=== PATIENT | male | born 1970 | race Two or more races ===

== ENCOUNTER 2017-12-01 12:05 | Inpatient (IN) | payer BC ==
[~2017-12-01] VITALS: Ht 165.1 cm; Wt 68.9 kg
[2017-12-01 16:00] VITALS: BP 139/72
[2017-12-01] MEDS ORDERED: Norco 5mg/325mg tab ORAL PRN ×2 (16:00→22:00)
[2017-12-01] MEDS ORDERED: Zolpidem 5mg tab ORAL PRN (17:00)
--- NOTE | 2017-12-01 17:05 | History & Physical ---
History and Physical History & Physicial Dictated for Int Med-Dr Carter no. [id number]. Arden Salas MD December 01, 2017 17:05
--- NOTE | 2017-12-01 17:45 | History and Physical Report ---
DATE OF ADMISSION: 12/01/2017 CHIEF COMPLAINT: The patient is a 47-year-old male who presents with complaint of right flank pain. HISTORY OF PRESENT ILLNESS: The patient has a history of right renal calculus approximately 15 years ago. The patient states history of present illness began on Friday. The patient began to have right flank pain. The patient went to [facility] emergency room. A CT scan revealed constipation. The patient was discharged home, the pain continued. The patient states the pain got unbearable on Friday evening November 30, 2017. The patient presented again to [facility] emergency room on December 01, 2017. The patient transferred to [facility] for insurance purposes. The patient admitted with right flank pain to rule out acute renal calculus. REVIEW OF SYSTEMS: CONSTITUTIONAL: The patient denies weight loss or weight gain. The patient denies fevers or chills. HEENT: The patient denies ear or throat pain. The patient denies headache. CARDIOVASCULAR: The patient denies palpitations or chest pain. CHEST: The patient denies wheeze or shortness of breath. ABDOMEN: The patient complains of right flank pain as above. The patient denies nausea, vomiting, diarrhea, or constipation. GENITOURINARY: The patient denies dysuria or increased frequency of urination. NEUROMUSCULAR: The patient denies seizures or generalized weakness. PAST MEDICAL HISTORY: Significant for: 1. Right renal calculus approximately 15 years ago. 2. HIV which was diagnosed in 1987. The patient states his last T-cell count was greater than 500 and his viral load is undetectable. PAST SURGICAL HISTORY: The patient denies. CURRENT MEDICATIONS: 1. Descovy. 2. Prezcobix. ALLERGIES: No known drug allergies. SOCIAL HISTORY: The patient is single and works in [employer] for [employer]. The patient denies tobacco or alcohol use. PHYSICAL EXAMINATION: VITAL SIGNS: Temperature 98.4, respirations 19, pulse 87, blood pressure 139/72. GENERAL: The patient is well-developed and well-nourished white male, in no apparent distress. HEENT: Pupils are equal responsive to light and accommodation. Extraocular movements are intact. NECK: Supple without lymphadenopathy. CHEST: Lungs are clear to auscultation bilaterally without wheezes or rales. CARDIOVASCULAR: Regular rate. S1 and S2 are normal without murmurs, rubs, or gallops. ABDOMEN: Soft. Nondistended with positive bowel sounds. There is pain to palpation in right lower quadrant. There is no rebound or guarding noted. EXTREMITIES: Negative for clubbing, cyanosis, or edema. RECTAL/GENITAL: Refused. NEUROLOGIC: Cranial nerves II through XII are grossly intact without focal deficits. Motor strength is 5/5 bilaterally. Deep tendon reflexes are 2+, plantar. LABORATORY AND DIAGNOSTIC DATA: From [place], WBC 12.6, hemoglobin 15.7, hematocrit 44.5, platelets 277,000. Sodium 131, potassium 3.5, chloride 95, CO2 24, BUN 10, creatinine 0.89, glucose 120. Urinalysis showed 1+ ketones otherwise within normal limits. A CT scan of the abdomen revealed a 3 mm nonobstructing right renal calculus. ASSESSMENT: This is a 47-year-old white male: 1. Flank pain, right. 2. Right renal calculus. 3. HIV TREATMENT: 1. Flank pain/right renal calculus. Urology consultation is pending. The patient has been started empirically on Flomax. Urine culture is pending. We will follow recommendations of Urology. 2. HIV. Continue Prezcobix and Descovy as above. Arden Salas M.D. DR: Liam JOB#: [id number] CC:
[2017-12-01 18:06] LABS: EOSINOPHILS % (AUTO) 0.5 % (0.0-3.0); HEMATOCRIT 44.5 % (42.0-52.0); HEMOGLOBIN 16.1 G/DL (14.2-18.0); MEAN CORPUSCULAR VOLUME 83 FL (80-99); MONOCYTES % (AUTO) 10.1 % (1.0-10.0); NEUTROPHILS % (AUTO) 57.4 % (45.0-75.0); PLATELET COUNT 267 K/UL (150-450); RED BLOOD COUNT 5.34 M/UL (4.70-6.10); RED CELL DISTRIBUTION WIDTH 11.2 % (11.6-14.8); WHITE BLOOD COUNT 7.5 K/UL (4.8-10.8)
--- NOTE | 2017-12-01 18:14 | Consultation ---
History of Present Illness General Date patient seen: December 01, 2017 Present Illness HPI 47 y/o M with hx of HIV on ARV (dx on 1987, per patient CD4 >500 and VL UD), R nephrolithiasis about 15 years ago admitted on 12/01 with R flank pain. [facility] showed const[facility] and patient discharged home, however pain continued and returned to [place] yesterday and transferred here. Denies f/c, n/v/d, cough, SOB Afebrile Labs pending Allergies: Coded Allergies: No Known Allergies (Unverified , 12/01/17) verified with patient Patient History Healthcare decision maker self Resuscitation status Full Code Advanced Directive on File No Patient History Narrative Pmhx: as above Shx: The patient is single and works in [employer] for [employer]. The patient denies tobacco or alcohol use. Fhx: non contributory Review of Systems All Other Systems: negative except mentioned in HPI Physical Exam Physical Exam Narrative GENERAL: The patient is well-developed and well-nourished white male, in no apparent distress. HEENT: Pupils are equal responsive to light and accommodation. Extraocular movements are intact. NECK: Supple without lymphadenopathy. CHEST: Lungs are clear to auscultation bilaterally without wheezes or rales. CARDIOVASCULAR: Regular rate. S1 and S2 are normal without murmurs, rubs, or gallops. ABDOMEN: Soft. Nondistended with positive bowel sounds. There is pain to palpation in right lower quadrant. There is no rebound or guarding noted. EXTREMITIES: Negative for clubbing, cyanosis, or edema. NEUROLOGIC: Cranial nerves II through XII are grossly intact without focal deficits. Motor strength is 5/5 bilaterally. Deep tendon reflexes are 2+, plantar. Skin: some faint, crusted lesions on erythematous base on R lower flank; correspond to area of pain. Last 24 Hour Vital Signs Date Time Temp Pulse Resp B/P (MAP) Pulse Ox O2 Delivery O2 Flow Rate FiO2 12/01/17 16:09 98.2 82 16 98 Room Air 98.2 12/01/17 16:00 98.4 87 19 139/72 99 98.4 Laboratory Tests Test 12/01/17 17:42 White Blood Count Pending Red Blood Count Pending Hemoglobin Pending Hematocrit Pending Mean Corpuscular Volume Pending Mean Corpuscular Hemoglobin Pending Mean Corpuscular Hemoglobin Concent Pending Red Cell Distribution Width Pending Platelet Count Pending Mean Platelet Volume Pending Neutrophils (%) (Auto) Pending Lymphocytes (%) (Auto) Pending Monocytes (%) (Auto) Pending Eosinophils (%) (Auto) Pending Basophils (%) (Auto) Pending Sodium Level Pending Potassium Level Pending Chloride Level Pending Carbon Dioxide Level Pending Blood Urea Nitrogen Pending Creatinine Pending Estimat Glomerular Filtration Rate Pending Glucose Level Pending Calcium Level Pending Phosphorus Level Pending Magnesium Level Pending Total Bilirubin Pending Aspartate Amino Transf (AST/SGOT) Pending Alanine Aminotransferase (ALT/SGPT) Pending Alkaline Phosphatase Pending Total Protein Pending Albumin Pending Globulin Pending Height (Feet): 5 Height (Inches): 5.00 Weight (Pounds): 152 Medications Current Medications Medications (Trade) Dose Ordered Sig/Rekha Route PRN Reason Start Time Stop Time Status Last Admin Dose Admin Acetaminophen (Tylenol) 650 mg Q4H PRN ORAL Mild Pain (Pain Scale 1-3) 12/01/17 17:00 12/31/17 16:59 Acetaminophen (Tylenol) 650 mg Q4H PRN ORAL fever (Temp>100.4F) 12/01/17 17:00 12/31/17 16:59 Acetaminophen/ Hydrocodone Bitart ([place] 5/325) 1 tab Q6H PRN ORAL pain level 7-10 12/01/17 16:00 12/14/17 15:59 Dextrose (Dextrose 50%) 25 ml STAT PRN IV Hypoglycemia 12/01/17 17:00 12/31/17 16:59 Dextrose (Dextrose 50%) 50 ml STAT PRN IV Hypoglycemia 12/01/17 17:00 12/31/17 16:59 Famotidine (Pepcid) 20 mg BID ORAL 12/01/17 18:00 12/31/17 17:59 Ondansetron HCl (Zofran) 4 mg Q6H PRN IVP Nausea & Vomiting 12/01/17 17:00 12/31/17 16:59 Sodium Chloride 1,000 ml @ 75 mls/hr [id number] IV 12/01/17 18:00 12/31/17 17:59 Zolpidem Tartrate (Ambien) 5 mg HSPRN PRN ORAL Insomnia 12/01/17 17:00 12/08/17 16:59 Assessment/Plan Assessment/Plan Abx: None Assessment: R flank pain- Patient has what appears as early Shingle lesions on area of pain - r/o nephrolithiasis vs constipation. r/o UTI -u/a p -CT @[place]- no nephrolithiasis; +constipation Afebrile -labs pending HIV, dx 1987- per patient well controlled: VL UD, CD4>500 Hx of R nephrolithiasis ~15 yrs ago Plan: -Continue to monitor off abx unless evidence of infection on u/a -Start PO Valacyclovir 1g tid for 7 days for shingles -Prezcobix not available in pharmacy formulary; will hold ARV until can be brought from home. Will not substitute as I'm unaware of his HIV genotype and prior ARV regimens -Descovy can be switched to Truvada only when Prezcobix is made available ( need to receive both meds) -per patient, someone from home will bring both medsd -f/u cx -Monitor CBC/BMP, temperatures -Uro follow up -contact precautions Thank you for this consultation. Will continue to follow along with you. Discussed with Aiyana Mijares M.D. December 01, 2017 18:14
[2017-12-01 18:30] LABS: ALANINE AMINOTRANSFERASE 36 U/L (12-78); ALBUMIN 3.9 G/DL (3.4-5.0); ALBUMIN/GLOBULIN RATIO 1.1 (1.0-2.7); ALKALINE PHOSPHATASE 42 U/L (46-116); ANION GAP 11 mmol/L (5-15); ASPARTATE AMINO TRANSFERASE 33 U/L (15-37); BILIRUBIN,TOTAL 1.1 MG/DL (0.2-1.0); BLOOD UREA NITROGEN 9 mg/dL (7-18); CALCIUM 8.9 MG/DL (8.5-10.1); CARBON DIOXIDE 25 MMOL/L (21-32); CHLORIDE 100 MMOL/L (98-107); CREATININE 0.8 MG/DL (0.55-1.30); PHOSPHORUS 2.5 MG/DL (2.5-4.9); POTASSIUM 3.2 MMOL/L (3.5-5.1); SODIUM 135 MMOL/L (136-145)
[2017-12-01] MEDS: NS w/KCl 20mEq 1,000 ML IV SCH (18:36)
[2017-12-01 18:42] LABS: BILIRUBIN,DIRECT 0.2 MG/DL (0.0-0.3)
[2017-12-01 20:00] VITALS: BP 132/77
[2017-12-01] MEDS ORDERED: valACYclovir HCL 500mg tab ORAL SCH (20:00)
[2017-12-01 20:25] LABS: APPEARANCE,URINE CLEAR; BILIRUBIN, URINE NEGATIVE (NEGATIVE); COLOR,URINE PALE YELLOW; GLUCOSE, URINE (UA) NEGATIVE (NEGATIVE); KETONES,URINE 1+ (NEGATIVE); LEUKOCYTE ESTERASE ,URINE NEGATIVE (NEGATIVE); NITRITE,URINE NEGATIVE (NEGATIVE); PH,URINE 7 (4.5-8.0); PROTEIN,URINE NEGATIVE (NEGATIVE); UROBILINOGEN,URINE NORMAL MG/DL (0.0-1.0)
[2017-12-02 00:10] VITALS: BP 125/67
--- NOTE | 2017-12-02 00:45 | Consultation ---
DATE OF CONSULTATION: 12/01/2017 UROLOGY CONSULTATION CONSULTING PHYSICIAN: Chuy Main M.D. ATTENDING/CONSULTING PHYSICIAN: Mejia Carter M.D. CHIEF COMPLAINT/HISTORY OF PRESENT ILLNESS: I was asked by Dr. Carter and Dr. Salas to evaluate this very pleasant, 47-year-old gentleman regarding history of a right kidney stone. Briefly, the patient presented to an outside facility with right-sided abdominal and lower back pain. He has a history of nephrolithiasis dating [address] scan done at the [place] revealed a 3 mm nonobstructing stone in the right kidney, but otherwise no evidence of hydronephrosis or ureteral stone. The patient was eventually transferred here due to ongoing discomfort and his insurance. Given the above, I was asked to evaluate the patient. PAST MEDICAL HISTORY: 1. HIV. 2. Nephrolithiasis. PAST SURGICAL HISTORY: None. MEDICATIONS: Please see chart for current medication administration details. ALLERGIES: No known drug allergies. SOCIAL HISTORY: Unremarkable for tobacco, alcohol, or drug use. The patient works in the [employer]. FAMILY HISTORY: Noncontributory. REVIEW OF SYSTEMS: A 12-system review of systems essentially unremarkable outside what was described above. PHYSICAL EXAMINATION: GENERAL: The patient is a middle-aged gentleman, awake, alert and oriented x4. Very pleasant. No obvious distress. HEENT: NC/AT. EOMI. NECK: Supple. Full range of motion. Oropharynx clear. CHEST: Within normal limits. ABDOMEN: Soft, nontender, and nondistended. EXTREMITIES: Warm and well perfused. No cyanosis, clubbing or edema. NEUROLOGIC: Grossly nonfocal. LABORATORY AND DIAGNOSTIC DATA: White blood cell count 7.5, hematocrit 44.5, and platelets 267. Sodium 135, potassium 3.2, chloride 100, bicarbonate 25, BUN 9, creatinine 0.8, and glucose . Calcium 8.9. LFTs within normal limits. Urinalysis, specific gravity of 1.005, pH 7.0. Dip test notable for 1+ ketones, 1+ occult blood. Microanalysis with 2 to 4 red blood cells per high-power field, and few bacteria seen. Diagnostic imaging, CT scan of the abdomen and pelvis done at an outside facility reveals a 3 mm nonobstructing right renal calculus. There is no hydronephrosis bilaterally. There is a distended urinary bladder and a 4 cm diverticulum in the left posterior bladder wall. ASSESSMENT AND PLAN: In summary, the patient is a 47-year-old gentleman with a history of a remote kidney stone. He developed right-sided lower abdominal and back pain. He presented to an outside facility and a CT scan revealed a 3 mm incidental right nonobstructing renal stone, but no evidence of hydronephrosis or an ureteral stone or other obstruction, transferred here. There is concern that he may have shingles/herpes zoster reactivation. Laboratory data essentially unremarkable outside of a small amount of microhematuria. Diagnostic imaging reveals the findings described above. Discussed these findings today with the patient at bedside. I am certain that his back pain is not stemming from his nonobstructing small kidney stone. There is no evidence of hydronephrosis or ureteral stone to support as a source of his pain. Additionally, the stone is very small and does not require any treatment at this time. I agree that the patient likely needs other sources of his pain evaluated in addition to the workup for shingles perhaps a musculoskeletal or spinal column source could be sought. Consideration for disc herniation or other reasons could be considered. Thank you for allowing me to participate in the care of this nice gentleman. Please do not hesitate to contact me for any questions that you may further have regarding his care. I will see him with you as needed. Chuy Main M.D. DR: PIEDAD JOB#: [id number] CC:
[2017-12-02] MEDS: HYDROcodone/Acetamin 10/325 tab ORAL PRN ×3 (00:50→13:25)
[2017-12-02] MEDS: NS w/KCl 20mEq 1,000 ML IV SCH (06:24)
[2017-12-02 08:00] VITALS: BP 133/60
[2017-12-02 08:12] LABS: HEMATOCRIT 43.9 % (42.0-52.0); HEMOGLOBIN 15.6 G/DL (14.2-18.0); LYMPHOCYTES % (AUTO) 35.6 % (20.0-45.0); MEAN CORPUSCULAR VOLUME 84 FL (80-99); MONOCYTES % (AUTO) 12.6 % (1.0-10.0); NEUTROPHILS % (AUTO) 49.9 % (45.0-75.0); PLATELET COUNT 232 K/UL (150-450); RED BLOOD COUNT 5.21 M/UL (4.70-6.10); RED CELL DISTRIBUTION WIDTH 11.5 % (11.6-14.8); WHITE BLOOD COUNT 6.5 K/UL (4.8-10.8)
[2017-12-02 08:31] LABS: ANION GAP 9 mmol/L (5-15); BLOOD UREA NITROGEN 11 mg/dL (7-18); CALCIUM 8.5 MG/DL (8.5-10.1); CARBON DIOXIDE 27 MMOL/L (21-32); CHLORIDE 103 MMOL/L (98-107); POTASSIUM 3.6 MMOL/L (3.5-5.1); SODIUM 139 MMOL/L (136-145)
[2017-12-02] MEDS: valACYclovir HCL 500mg tab ORAL SCH ×3 (08:31→17:54)
--- NOTE | 2017-12-02 11:09 | Infectious Diseases Prog Note ---
Assessment/Plan Assessment/Plan Abx: None Assessment: R flank pain- Patient has what appears as early Shingle lesions on area of pain -u/a normal except for very mild hematuria RBC 2-4 -CT @[place]- no nephrolithiasis; +constipation, non obstructive R kidney stone ; no ureteral stones Afebrile, no leukocytosis HIV, dx 1987- per patient well controlled: VL UD, CD4>500 Hx of R nephrolithiasis ~15 yrs ago Plan: -Continue PO Valacyclovir 1g tid #2/7 days for shingles -Prezcobix not available in pharmacy formulary; will hold ARV until can be brought from home. Will not substitute as I'm unaware of his HIV genotype and prior ARV regimens -Descovy can be switched to Truvada only when Prezcobix is made available ( need to receive both meds) -per patient, someone from home will bring both meds -f/u cx -Monitor CBC/BMP, temperatures -contact precautions Thank you for this consultation. Will continue to follow along with you. Discussed with RN Subjective Allergies: Coded Allergies: No Known Allergies (Unverified , 12/01/17) verified with patient Objective Vital Signs Last 24 Hour Vital Signs Date Time Temp Pulse Resp B/P (MAP) Pulse Ox O2 Delivery O2 Flow Rate FiO2 12/02/17 10:03 98.1 12/02/17 08:00 98.1 56 15 133/60 97 98.1 56 12/02/17 07:50 98.1 12/02/17 00:10 97.0 66 20 125/67 97 Room Air 97.0 66 12/01/17 20:00 97.5 61 20 132/77 98 Room Air 97.5 61 12/01/17 18:49 98.2 12/01/17 16:09 98.2 82 16 98 Room Air 98.2 12/01/17 16:00 98.4 87 19 139/72 99 98.4 Height (Feet): 5 Height (Inches): 5.00 Weight (Pounds): 152 Objective GENERAL: The patient is well-developed and well-nourished white male, in no apparent distress. HEENT: Pupils are equal responsive to light and accommodation. Extraocular movements are intact. NECK: Supple without lymphadenopathy. CHEST: Lungs are clear to auscultation bilaterally without wheezes or rales. CARDIOVASCULAR: Regular rate. S1 and S2 are normal without murmurs, rubs, or gallops. ABDOMEN: Soft. Nondistended with positive bowel sounds. There is pain to palpation in right lower quadrant. There is no rebound or guarding noted. EXTREMITIES: Negative for clubbing, cyanosis, or edema. Skin: some faint, crusted lesions on erythematous base on R lower flank; correspond to area of pain. Laboratory Tests Test 12/01/17 17:42 12/01/17 18:10 12/02/17 06:30 White Blood Count 7.5 K/UL (4.8-10.8) 6.5 K/UL (4.8-10.8) Red Blood Count 5.34 M/UL (4.70-6.10) 5.21 M/UL (4.70-6.10) Hemoglobin 16.1 G/DL (14.2-18.0) 15.6 G/DL (14.2-18.0) Hematocrit 44.5 % (42.0-52.0) 43.9 % (42.0-52.0) Mean Corpuscular Volume 83 FL (80-99) 84 FL (80-99) Mean Corpuscular Hemoglobin 30.1 PG (27.0-31.0) 30.0 PG (27.0-31.0) Mean Corpuscular Hemoglobin Concent 36.1 G/DL (32.0-36.0) H 35.6 G/DL (32.0-36.0) Red Cell Distribution Width 11.2 % (11.6-14.8) L 11.5 % (11.6-14.8) L Platelet Count 267 K/UL (150-450) 232 K/UL (150-450) Mean Platelet Volume 6.2 FL (6.5-10.1) L 6.6 FL (6.5-10.1) Neutrophils (%) (Auto) 57.4 % (45.0-75.0) 49.9 % (45.0-75.0) Lymphocytes (%) (Auto) 31.0 % (20.0-45.0) 35.6 % (20.0-45.0) Monocytes (%) (Auto) 10.1 % (1.0-10.0) H 12.6 % (1.0-10.0) H Eosinophils (%) (Auto) 0.5 % (0.0-3.0) 1.0 % (0.0-3.0) Basophils (%) (Auto) 1.0 % (0.0-2.0) 1.0 % (0.0-2.0) Sodium Level 135 MMOL/L (136-145) L 139 MMOL/L (136-145) Potassium Level 3.2 MMOL/L (3.5-5.1) L 3.6 MMOL/L (3.5-5.1) Chloride Level 100 MMOL/L (98-107) 103 MMOL/L (98-107) Carbon Dioxide Level 25 MMOL/L (21-32) 27 MMOL/L (21-32) Anion Gap 11 mmol/L (5-15) 9 mmol/L (5-15) Blood Urea Nitrogen 9 mg/dL (7-18) 11 mg/dL (7-18) Creatinine 0.8 MG/DL (0.55-1.30) 1.0 MG/DL (0.55-1.30) Estimat Glomerular Filtration Rate > 60 mL/min (>60) > 60 mL/min (>60) Glucose Level 148 MG/DL (74-106) H 80 MG/DL (74-106) Calcium Level 8.9 MG/DL (8.5-10.1) 8.5 MG/DL (8.5-10.1) Phosphorus Level 2.5 MG/DL (2.5-4.9) Magnesium Level 2.4 MG/DL (1.8-2.4) Total Bilirubin 1.1 MG/DL (0.2-1.0) H Direct Bilirubin 0.2 MG/DL (0.0-0.3) Aspartate Amino Transf (AST/SGOT) 33 U/L (15-37) Alanine Aminotransferase (ALT/SGPT) 36 U/L (12-78) Alkaline Phosphatase 42 U/L (46-116) L Total Protein 7.3 G/DL (6.4-8.2) Albumin 3.9 G/DL (3.4-5.0) Globulin 3.4 g/dL Albumin/Globulin Ratio 1.1 (1.0-2.7) Urine Color Pale yellow Urine Appearance Clear Urine pH 7 (4.5-8.0) Urine Specific [place] 1.005 (1.005-1.035) Urine Protein Negative (NEGATIVE) Urine Glucose (UA) Negative (NEGATIVE) Urine Ketones 1+ (NEGATIVE) H Urine Occult Blood 1+ (NEGATIVE) H Urine Nitrite Negative (NEGATIVE) Urine Bilirubin Negative (NEGATIVE) Urine Urobilinogen Normal MG/DL (0.0-1.0) Urine Leukocyte Esterase Negative (NEGATIVE) Urine RBC 2-4 /HPF (0 - 0) H Urine WBC 0-2 /HPF (0 - 0) Urine Squamous Epithelial Cells None /LPF (NONE/OCC) Urine Bacteria Few /HPF (NONE) Current Medications Medications (Trade) Dose Ordered Sig/Rekha Route PRN Reason Start Time Stop Time Status Last Admin Dose Admin Acetaminophen (Tylenol) 650 mg Q4H PRN ORAL Mild Pain (Pain Scale 1-3) 12/01/17 17:00 12/31/17 16:59 Acetaminophen (Tylenol) 650 mg Q4H PRN ORAL fever (Temp>100.4F) 12/01/17 17:00 12/31/17 16:59 Acetaminophen/ Hydrocodone Bitart ([place] 10/325) 1 tab Q6H PRN ORAL Severe Pain (Pain Scale 7-10) 12/01/17 20:45 12/08/17 20:44 12/02/17 06:51 Acetaminophen/ Hydrocodone Bitart ([place] 5/325) 1 tab Q6H PRN ORAL Moderate Pain (Pain Scale 4-6) 12/01/17 22:00 12/14/17 15:59 12/02/17 10:03 Dextrose (Dextrose 50%) 25 ml STAT PRN IV Hypoglycemia 12/01/17 17:00 12/31/17 16:59 Dextrose (Dextrose 50%) 50 ml STAT PRN IV Hypoglycemia 12/01/17 17:00 12/31/17 16:59 Famotidine (Pepcid) 20 mg BID ORAL 12/01/17 18:00 12/31/17 17:59 12/02/17 08:31 Ondansetron HCl (Zofran) 4 mg Q6H PRN IVP Nausea & Vomiting 12/01/17 17:00 12/31/17 16:59 Patient Own Medication (Patient's Own Med) 1 ea DAILY ORAL 12/02/17 09:00 01/01/18 08:59 UNV Sodium Chloride 1,000 ml @ 75 mls/hr [id number] IV 12/01/17 18:00 12/31/17 17:59 12/02/17 06:24 Valacyclovir HCl (Valtrex) 1,000 mg TID ORAL 12/02/17 09:00 01/01/18 08:59 12/02/17 08:31 Zolpidem Tartrate (Ambien) 5 mg HSPRN PRN ORAL Insomnia 12/01/17 17:00 12/08/17 16:59 Aiyana Silva M.D. December 02, 2017 11:09
[2017-12-02 12:00] VITALS: BP 119/71
--- NOTE | 2017-12-02 14:03 | Consultation ---
History of Present Illness General Date patient seen: December 02, 2017 Present Illness HPI 47 year old male with hx of HIV, nephrolithiasis presented to [facility] with CC of R flank pain. He had a CT scan of abdomen showing non obstructing small renal stone. Initially he was told he might be constipated. later one it was assumed that pt has shingles. [place] [facility] [place]. Allergies: Coded Allergies: No Known Allergies (Unverified , 12/01/17) verified with patient Patient History Healthcare decision maker self Resuscitation status Full Code Advanced Directive on File No Past Medical/Surgical History Past Medical/Surgical History: (1) HIV disease (2) Nephrolithiasis Review of Systems All Other Systems: negative except mentioned in HPI Physical Exam General Appearance: WD/WN Lines, tubes and drains: peripheral HEENT: normocephalic, atraumatic Neck: non-tender, normal alignment Respiratory/Chest: chest wall non-tender, lungs clear Breasts: no masses Cardiovascular/Chest: normal rate Abdomen: normal bowel sounds, non tender Genitourinary/Rectal: normal genital exam Extremities: normal range of motion Skin Exam: normal pigmentation 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 Last 24 Hour Vital Signs Date Time Temp Pulse Resp B/P (MAP) Pulse Ox O2 Delivery O2 Flow Rate FiO2 12/02/17 13:25 98.0 12/02/17 12:00 98.0 92 19 119/71 99 98.0 92 12/02/17 11:02 98.1 12/02/17 10:03 98.1 12/02/17 08:00 98.1 56 15 133/60 97 98.1 56 12/02/17 07:50 98.1 12/02/17 00:10 97.0 66 20 125/67 97 Room Air 97.0 66 12/01/17 20:00 97.5 61 20 132/77 98 Room Air 97.5 61 12/01/17 18:49 98.2 12/01/17 16:09 98.2 82 16 98 Room Air 98.2 12/01/17 16:00 98.4 87 19 139/72 99 98.4 Laboratory Tests Test 12/01/17 17:42 12/01/17 18:10 12/02/17 06:30 White Blood Count 7.5 K/UL (4.8-10.8) 6.5 K/UL (4.8-10.8) Red Blood Count 5.34 M/UL (4.70-6.10) 5.21 M/UL (4.70-6.10) Hemoglobin 16.1 G/DL (14.2-18.0) 15.6 G/DL (14.2-18.0) Hematocrit 44.5 % (42.0-52.0) 43.9 % (42.0-52.0) Mean Corpuscular Volume 83 FL (80-99) 84 FL (80-99) Mean Corpuscular Hemoglobin 30.1 PG (27.0-31.0) 30.0 PG (27.0-31.0) Mean Corpuscular Hemoglobin Concent 36.1 G/DL (32.0-36.0) H 35.6 G/DL (32.0-36.0) Red Cell Distribution Width 11.2 % (11.6-14.8) L 11.5 % (11.6-14.8) L Platelet Count 267 K/UL (150-450) 232 K/UL (150-450) Mean Platelet Volume 6.2 FL (6.5-10.1) L 6.6 FL (6.5-10.1) Neutrophils (%) (Auto) 57.4 % (45.0-75.0) 49.9 % (45.0-75.0) Lymphocytes (%) (Auto) 31.0 % (20.0-45.0) 35.6 % (20.0-45.0) Monocytes (%) (Auto) 10.1 % (1.0-10.0) H 12.6 % (1.0-10.0) H Eosinophils (%) (Auto) 0.5 % (0.0-3.0) 1.0 % (0.0-3.0) Basophils (%) (Auto) 1.0 % (0.0-2.0) 1.0 % (0.0-2.0) Sodium Level 135 MMOL/L (136-145) L 139 MMOL/L (136-145) Potassium Level 3.2 MMOL/L (3.5-5.1) L 3.6 MMOL/L (3.5-5.1) Chloride Level 100 MMOL/L (98-107) 103 MMOL/L (98-107) Carbon Dioxide Level 25 MMOL/L (21-32) 27 MMOL/L (21-32) Anion Gap 11 mmol/L (5-15) 9 mmol/L (5-15) Blood Urea Nitrogen 9 mg/dL (7-18) 11 mg/dL (7-18) Creatinine 0.8 MG/DL (0.55-1.30) 1.0 MG/DL (0.55-1.30) Estimat Glomerular Filtration Rate > 60 mL/min (>60) > 60 mL/min (>60) Glucose Level 148 MG/DL (74-106) H 80 MG/DL (74-106) Calcium Level 8.9 MG/DL (8.5-10.1) 8.5 MG/DL (8.5-10.1) Phosphorus Level 2.5 MG/DL (2.5-4.9) Magnesium Level 2.4 MG/DL (1.8-2.4) Total Bilirubin 1.1 MG/DL (0.2-1.0) H Direct Bilirubin 0.2 MG/DL (0.0-0.3) Aspartate Amino Transf (AST/SGOT) 33 U/L (15-37) Alanine Aminotransferase (ALT/SGPT) 36 U/L (12-78) Alkaline Phosphatase 42 U/L (46-116) L Total Protein 7.3 G/DL (6.4-8.2) Albumin 3.9 G/DL (3.4-5.0) Globulin 3.4 g/dL Albumin/Globulin Ratio 1.1 (1.0-2.7) Urine Color Pale yellow Urine Appearance Clear Urine pH 7 (4.5-8.0) Urine Specific [place] 1.005 (1.005-1.035) Urine Protein Negative (NEGATIVE) Urine Glucose (UA) Negative (NEGATIVE) Urine Ketones 1+ (NEGATIVE) H Urine Occult Blood 1+ (NEGATIVE) H Urine Nitrite Negative (NEGATIVE) Urine Bilirubin Negative (NEGATIVE) Urine Urobilinogen Normal MG/DL (0.0-1.0) Urine Leukocyte Esterase Negative (NEGATIVE) Urine RBC 2-4 /HPF (0 - 0) H Urine WBC 0-2 /HPF (0 - 0) Urine Squamous Epithelial Cells None /LPF (NONE/OCC) Urine Bacteria Few /HPF (NONE) Height (Feet): 5 Height (Inches): 5.00 Weight (Pounds): 152 Medications Current Medications Medications (Trade) Dose Ordered Sig/Rekha Route PRN Reason Start Time Stop Time Status Last Admin Dose Admin Acetaminophen (Tylenol) 650 mg Q4H PRN ORAL Mild Pain (Pain Scale 1-3) 12/01/17 17:00 12/31/17 16:59 Acetaminophen (Tylenol) 650 mg Q4H PRN ORAL fever (Temp>100.4F) 12/01/17 17:00 12/31/17 16:59 Acetaminophen/ Hydrocodone Bitart ([place] 10/325) 1 tab Q6H PRN ORAL Severe Pain (Pain Scale 7-10) 12/01/17 20:45 12/08/17 20:44 12/02/17 13:25 Acetaminophen/ Hydrocodone Bitart ([place] 5/325) 1 tab Q6H PRN ORAL Moderate Pain (Pain Scale 4-6) 12/01/17 22:00 12/14/17 15:59 12/02/17 10:03 Dextrose (Dextrose 50%) 25 ml STAT PRN IV Hypoglycemia 12/01/17 17:00 12/31/17 16:59 Dextrose (Dextrose 50%) 50 ml STAT PRN IV Hypoglycemia 12/01/17 17:00 12/31/17 16:59 Famotidine (Pepcid) 20 mg BID ORAL 12/01/17 18:00 12/31/17 17:59 12/02/17 08:31 Ondansetron HCl (Zofran) 4 mg Q6H PRN IVP Nausea & Vomiting 12/01/17 17:00 12/31/17 16:59 Patient Own Medication (Patient's Own Med) 1 ea DAILY ORAL 12/02/17 09:00 01/01/18 08:59 UNV Sodium Chloride 1,000 ml @ 75 mls/hr [id number] IV 12/01/17 18:00 12/31/17 17:59 12/02/17 06:24 Valacyclovir HCl (Valtrex) 1,000 mg TID ORAL 12/02/17 09:00 01/01/18 08:59 12/02/17 13:23 Zolpidem Tartrate (Ambien) 5 mg HSPRN PRN ORAL Insomnia 12/01/17 17:00 12/08/17 16:59 Assessment/Plan Problem List: (1) Flank pain ICD Codes: R10.9 - Unspecified abdominal pain SNOMED: 480607728 (2) Nephrolithiasis ICD Codes: N20.0 - Calculus of kidney SNOMED: 58237409 (3) HIV disease ICD Codes: B20 - Human immunodeficiency virus [HIV] disease SNOMED: 69378768 Assessment/Plan symptomatic treatment Pt is on antivirals for Shingles check CD4 check CXR all consults notes reviewed. Arthur Carbajal MD December 02, 2017 14:03
[2017-12-02 16:00] VITALS: BP 137/89
--- NOTE | 2017-12-02 18:26 | Internal Med Progress Note ---
Subjective Date of Service: December 02, 2017 Physician Name Salas,Arden Attending Physician Mejia Carter MD Current Medications Medications (Trade) Dose Ordered Sig/Rekha Route PRN Reason Start Time Stop Time Status Last Admin Dose Admin Acetaminophen (Tylenol) 650 mg Q4H PRN ORAL Mild Pain (Pain Scale 1-3) 12/01/17 17:00 12/31/17 16:59 Acetaminophen (Tylenol) 650 mg Q4H PRN ORAL fever (Temp>100.4F) 12/01/17 17:00 12/31/17 16:59 Acetaminophen/ Hydrocodone Bitart ([place] 10/325) 1 tab Q6H PRN ORAL Severe Pain (Pain Scale 7-10) 12/01/17 20:45 12/08/17 20:44 12/02/17 13:25 Acetaminophen/ Hydrocodone Bitart ([place] 5/325) 1 tab Q6H PRN ORAL Moderate Pain (Pain Scale 4-6) 12/01/17 22:00 12/14/17 15:59 12/02/17 10:03 Dextrose (Dextrose 50%) 25 ml STAT PRN IV Hypoglycemia 12/01/17 17:00 12/31/17 16:59 Dextrose (Dextrose 50%) 50 ml STAT PRN IV Hypoglycemia 12/01/17 17:00 12/31/17 16:59 Famotidine (Pepcid) 20 mg BID ORAL 12/01/17 18:00 12/31/17 17:59 12/02/17 17:54 Ondansetron HCl (Zofran) 4 mg Q6H PRN IVP Nausea & Vomiting 12/01/17 17:00 12/31/17 16:59 Patient Own Medication (Patient's Own Med) 1 ea DAILY ORAL 12/02/17 09:00 01/01/18 08:59 UNV Sodium Chloride 1,000 ml @ 75 mls/hr [id number] IV 12/01/17 18:00 12/31/17 17:59 12/02/17 06:24 Valacyclovir HCl (Valtrex) 1,000 mg TID ORAL 12/02/17 09:00 01/01/18 08:59 12/02/17 17:54 Zolpidem Tartrate (Ambien) 5 mg HSPRN PRN ORAL Insomnia 12/01/17 17:00 12/08/17 16:59 Allergies: Coded Allergies: No Known Allergies (Unverified , 12/01/17) verified with patient ROS Limited/Unobtainable: No Constitutional: Reports: no symptoms HEENT: Reports: no symptoms Cardiovascular: Reports: no symptoms Respiratory: Reports: no symptoms Gastrointestinal/Abdominal: Reports: no symptoms Genitourinary: Reports: no symptoms Neurologic/Psychiatric: Reports: no symptoms Subjective 47 YO M admitted with right flank pain. Cover for Int Frankie - Dr Carter. Objective Last Vital Signs Date Time Temp Pulse Resp B/P (MAP) Pulse Ox O2 Delivery O2 Flow Rate FiO2 12/02/17 16:00 98.0 62 20 137/89 98 98.0 62 12/02/17 00:10 Room Air General Appearance: WD/WN, no apparent distress, alert EENT: PERRL/EOMI, normal ENT inspection Neck: non-tender, normal alignment, supple, normal inspection Cardiovascular: normal peripheral pulses, normal rate, regular rhythm, no gallop/murmur, no JVD Respiratory/Chest: chest wall non-tender, lungs clear, normal breath sounds, no respiratory distress, no accessory muscle use Abdomen: normal bowel sounds, non tender, soft, no organomegaly, no mass Extremities: normal range of motion, non-tender 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, no motor/sensory deficits Skin: normal pigmentation, warm/dry Laboratory Tests Test 12/02/17 06:30 White Blood Count 6.5 K/UL (4.8-10.8) Red Blood Count 5.21 M/UL (4.70-6.10) Hemoglobin 15.6 G/DL (14.2-18.0) Hematocrit 43.9 % (42.0-52.0) Mean Corpuscular Volume 84 FL (80-99) Mean Corpuscular Hemoglobin 30.0 PG (27.0-31.0) Mean Corpuscular Hemoglobin Concent 35.6 G/DL (32.0-36.0) Red Cell Distribution Width 11.5 % (11.6-14.8) L Platelet Count 232 K/UL (150-450) Mean Platelet Volume 6.6 FL (6.5-10.1) Neutrophils (%) (Auto) 49.9 % (45.0-75.0) Lymphocytes (%) (Auto) 35.6 % (20.0-45.0) Monocytes (%) (Auto) 12.6 % (1.0-10.0) H Eosinophils (%) (Auto) 1.0 % (0.0-3.0) Basophils (%) (Auto) 1.0 % (0.0-2.0) Sodium Level 139 MMOL/L (136-145) Potassium Level 3.6 MMOL/L (3.5-5.1) Chloride Level 103 MMOL/L (98-107) Carbon Dioxide Level 27 MMOL/L (21-32) Anion Gap 9 mmol/L (5-15) Blood Urea Nitrogen 11 mg/dL (7-18) Creatinine 1.0 MG/DL (0.55-1.30) Estimat Glomerular Filtration Rate > 60 mL/min (>60) Glucose Level 80 MG/DL (74-106) Calcium Level 8.5 MG/DL (8.5-10.1) Intake and Output 12/01/17 12/02/17 19:00 07:00 # Voids 2 # Bowel Movements 1 Assessment/Plan Problem List: (1) Flank pain Assessment & Plan: Resolved. See urology note. Probably passed renal calculus. 3 mm stone remains in renal pelvis. (2) HIV disease Assessment & Plan: See ID note. HAART per ID (3) Nephrolithiasis (4) Rash and nonspecific skin eruption Assessment & Plan: Barely perceptible. Continue valtrex per ID for possible shingles. Status: stable Assessment/Plan Discharge home today. F/U PCP in 2 days. Arden Salas MD December 02, 2017 18:26
[2017-12-02] MEDS ORDERED: VALTREX500 MG ORAL (18:31)
[2017-12-02] MEDS ORDERED: NORCO 5-325 TA1 EACH ORAL (18:31)
--- NOTE | 2017-12-03 08:25 | Discharge Summary ---
Discharge Summary Discharge Summary _ DATE OF ADMISSION: 12/01/2017 DATE OF DISCHARGE: 12/02/2017 REASON FOR ADMISSION: 47 years old male with history of HIV (on antiretroviral regimen) , right nephrolithiasis about 15 years ago, initially presented to [facility] for right flank pain. CT of the abdomen and pelvis revealed 3 mm nonobstructive right renal calculus and evidence of constipation. Patient was discharged home at that time. However pain was continued, and patient returned to [place] for further evaluation and management. Patient was subsequently transferred to [facility] for insurance purposes. No fever, no chills. No nausea, no vomiting, no diarrhea. Denied cough or shortness of breath. No chest pain. Laboratory workup was unremarkable. Urinalysis with evidence of mild hematuria, no evidence of infection. Vital signs were stable. Patient admitted with right flank pain, rule out acute renal calculus, HIV status. CONSULTANTS: pulmonary/pie chef Dr. Carbajal ID specialist Dr. Ramon Urologist Dr. Main [facility] COURSE: Patient admitted to medical surgical floor. Urology consultation was requested. Patient started empirically on Flomax. Pain management was provided. Bowel regimen instituted. Antiretroviral regimen resumed from home. Urologist seen and evaluated the patient. Urologist carefully [id number] CT scan and concluded, that there was no evidence of hydronephrosis or ureteral stone to support it a source of his pain. Additionally, the stone was very small and did not require any treatment at this time. Urologist concluded, that right flank pain was certainly not due to kidney stone. Infectious disease consult was requested, initially for HIV status. HIV was diagnosed in 1987, patient has well-controlled disease. Per patient, viral load undetectable and CD4 more than 500. On physical examination patient found to what appeared to be early shingles lesion on area of pain. Patient started on valacyclovir 1 gm 3 times a day for 7 days. Pain management was addressed and pain was controlled. Patient had bowel movement. Patient was stable for discharge home to complete the course of valacyclovir . Follow-up with a primary care provider in 2 days. Due to rapid and unexpected improvement in patient's condition, patient was discharged in one day FINAL DIAGNOSES: Shingles Right flank pain secondary to early shingle lesions HIV status , well-controlled Nephrolithiasis Rash and nonspecific skin eruptions DISCHARGE MEDICATIONS: See Medication Reconciliation list. DISCHARGE INSTRUCTIONS: Patient was discharged home. Patient to complete 7 days of valacyclovir as prescribed by infectious disease specialist. Patient to follow-up with the primary care provider in 2 days I have been assigned to dictate discharge summary for this account. I was not involved in the patient's management. Digna Hooper NP December 03, 2017 08:25
== END 2017-12-02 19:30 | disposition home or self-care (01) | DRG 976 ==
LOC: 4W 13:36
DX: B02.9 Zoster without complications (principal); B20 Human immunodeficiency virus [HIV] disease; N20.0 Calculus of kidney
CPT/HCPCS: 36415; 80048; 80053; 81003; 82248; 83735; 84100; 85025; 87086